=== PATIENT | male | born 1965 | race Caucasian/White ===

== ENCOUNTER 2023-04-08 23:22 | Emergency (ER) | payer BC ==
[2023-04-08] MEDS ORDERED: Lidocaine 2% 20 ML MDV INFILT ONE (23:23)
[2023-04-08] MEDS ORDERED: Diphtheria,Pertussis(Acell),Tetanus Vaccine 0.5 ML Syringe IM ONE (23:49)
[2023-04-08] MEDS ORDERED: Bacitracin Oint 1 GM U/D Packet TOP ONE (23:50)
[2023-04-09] MEDS ORDERED: Amoxicillin/Clavulanate K 875-125 MG Tab PO ONE (00:40)
== END 2023-04-09 01:16 | disposition home or self-care (01) ==
LOC: FB.ED 23:22
DX: S31.050A Open bite of lower back and pelvis without penetration into retroperitoneum, initial encounter (principal); S31.159A Open bite of abdominal wall, unspecified quadrant without penetration into peritoneal cavity, initial encounter; S41.132A Puncture wound without foreign body of left upper arm, initial encounter; S61.532A Puncture wound without foreign body of left wrist, initial encounter; S61.012A Laceration without foreign body of left thumb without damage to nail, initial encounter; S80.812A Abrasion, left lower leg, initial encounter; S70.312A Abrasion, left thigh, initial encounter; S60.512A Abrasion of left hand, initial encounter; Z72.0 Tobacco use; Z23 Encounter for immunization; W54.0XXA Bitten by dog, initial encounter
CPT/HCPCS: 12005; 90471; 90715; 99283; A9270